=== PATIENT | male | born 1985 | race Caucasian/White ===

== ENCOUNTER 2023-04-04 15:26 | Emergency (ER) | payer SELFPAY ==
[~2023-04-04] VITALS: Ht 170.2 cm; Wt 105.0 kg
[2023-04-04 15:32] VITALS: O2SAT 97
[2023-04-04] MEDS ORDERED: CYCL5TAB PO (17:38)
[2023-04-04] MEDS ORDERED: NAPR-681 PO (17:38)
[2023-04-04 17:54] VITALS: BP 128/64; PULSE 95; RESP 18; TEMP 98.2
== END 2023-04-04 17:55 | disposition home or self-care (01) ==
LOC: ER 15:26
DX: S00.93XA Contusion of unspecified part of head, initial encounter (principal); S16.1XXA Strain of muscle, fascia and tendon at neck level, initial encounter; M54.2 Cervicalgia; W18.39XA Other fall on same level, initial encounter; Y93.89 Activity, other specified; Y92.89 Other specified places as the place of occurrence of the external cause; Y99.8 Other external cause status
CPT/HCPCS: 99283